=== PATIENT | male | born 1990 | race Caucasian/White ===

== ENCOUNTER → 2019-02-09 10:28 | Outpatient (CLI) | payer OTHER, SELFPAY ==
[2016-10-04 09:33] VITALS: BMI 18.9
[2019-02-09 12:45] LABS: Absolute Lymphocyte Count 0.67 X10^3/ul (0.83-4.51); Absolute Neutrophil Count 2.5 X10^3/uL (2.0-7.7); Eosinophil# 0.05 X10^3/uL; Eosinophils% 1.4 % (0-5); Hematocrit 44.6 % (40-54); Hemoglobin 15.6 g/dl (13.0-16.5); Lymphocyte # 0.67 X10^3/ul (4.0); Lymphocyte % 18.2 % (19-41); Mean Corpuscular Hgb 31.8 pg (27.0-32.0); Mean Corpuscular Volume 90.8 fL (80-94); Mean Platelet Vol. 10.8 fl (6.2-12.0); Monocyte# 0.48 X10^3/uL; Neutrophil # 2.49 X10^3/uL (2.7-7.7); Neutrophil % 67.4 % (47-70); Platelet Count 144 K/mm3 (150-450); RBC Distribution Width CV 12.2 % (11.6-14.6); RBC Distribution Width SD 40.1 fl (35.1-43.9); Red Blood Count 4.91 M/mm3 (4.6-6.2); White Blood Count 3.7 K/mm3 (4.4-11.0)
[2019-02-09 12:51] LABS: POSITIVE COUNT NO; POSITIVE DIFFERENTIAL NO; POSITIVE MORPHOLOGY NO
[2019-02-09 13:16] LABS: Anion Gap 6 (5-15); BUN 13 mg/dL (7-18); BUN/Creat Ratio 13.3 RATIO (10-20); Calcium,Total 9.1 mg/dL (8.5-10.1); Chloride 106 mmol/L (98-107); Creatinine, Serum 0.98 mg/dL (0.70-1.30); EST Glomerular Filtration Rate 96 mL/min (>60); Est Glom Filt Rate - Afr Amer 117 mL/min (>60); Glucose 86 mg/dL (74-106); Potassium 4.3 mmol/L (3.5-5.1); Sodium Level 141 mmol/L (136-145); Thyroid Stim Hormone (TSH) 0.86 uIU/mL (0.358-3.74)
== END ==
PROVIDERS: Family Provider Family Medicine; PCP Family Medicine; Referring Provider Family Medicine; Visit Provider Family Medicine
DX: R45.86 Emotional lability (principal)
CPT/HCPCS: 36415; 80048; 84443; 85025

== ENCOUNTER 2019-11-30 15:30 | Outpatient (RCR) | payer OTHER, SELFPAY ==
--- NOTE | 2019-10-29 17:06 | HP.PTEVAL_ITS ---
Patient's Visit Information JOLYNN CASH is a 28 year old M referred to Physical Therapy by ASHLEY PHAM with a diagnosis of LEFT KNEE PAIN. Date of Evaluation: 10/29/19 Physical Therapist: Damien Lujan, PT, Cert MDT, OCS - Visit Plan Frequency: 3x /Week Duration: 4 Weeks Plan: PT INTERVENTTIONS QUADS/HAMS/HIP STRENGTH ,FUNCTIONAL STRENGTHENING,MODALTIES NEEDED FOR PAIN. AVOID PAINFULL ATIVITIES - Subjective Findings: This 28 y/o male presnets to physical therapy with left knee pain. Patient injuried knee at work medical equipment 10/09/19 ,patient was squated down and herad a pop with immediate pain. Patient went to [facility] at [facility] ,did x-rays left knee-. Prescribed anti-inflammatory. Recommended PT. Patient has pain anterior knee sore. Aggraveting factors twisting,kneeling,pivoting,extended inactivity.Patient RTW full duty,but with brace. Alleviating rest. Patient knees parathesia/tingling . Patient has some discomfort with stairs mild squatting. Sleeping okay. 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 SOCIAL: ,baby - Pain Left Pain Intensity (Out of 10): 2 Pain Intensity Range: 10 - Objective POSTURE: mild foward. GAIT: reciprocal pattern. NEURO: intact. EDEMA: absent. AROM: 0-145 supine knee flexion. MMT: QUADS/HAMS/HIP FLEXION ,HIP ABD 4/5. FLEXABILITY: hams WFL ,quads WNL - Special Tests L Knee Alexis - Meniscus: Negative L Knee Ramón - ACL: Negative L Knee Anterior Drawer - ACL: Negative L Knee Pivot Shift - ACL, Ant. Rotator Instability: Negative L Knee Posterior Sag - PCL: Negative L Knee Valgus - MCL: Negative L Knee Varus - LCL: Negative L Knee Patellar Apprehension - PFS: Positive L Knee Patellar Grind - PFS: Negative - Goals Goal 1:: Independant with HEP Goal Time Frame: 4-6 Weeks Goal 2:: Decrease knee pain by 70% or > to improve function and job demands. Goal Time Frame: 4-6 Weeks Goal 3:: Patient to improve strength 5/5 fquads/hams/hip to improve function Goal Time Frame: 4-6 Weeks Goal 4:: Patient to improve LFES score by 10 points or> to improve QOL. Goal Time Frame: 4-6 Weeks Goal 5:: Pateint maryse able to perform job demands with problems Goal Time Frame: 4-6 Weeks - Rehabilitation Potential Physical Therapy Diagnosis: Patient has left knee pain for squatting at work had pain with symptosm affects ability to perform job demnads ,housework taks ,kneeling ,stairs thus benifit from skilled PT Rehabilitation Potential: Good - Anticipated Interventions Patient/Client Instruction: Educate patient on: Condition, Plan of Care For the Purpose of:: To decrease pain, To increase ROM, To improve muscle performance and motor function, To improve ability to perform ADL's, To increase tolerance to activity/condition/position, To improve ability of physical actions for home/community/work/leisure, To improve health of tissue, To increase flexibility/ROM, To reduce risk of recurrence, To improve ability to perform tasks related to life management Therapeutic Exercise to Include: Strength training, Power training, Endurance training, Balance training Comment: PRE'S QUADS/HAMS/HIP For the Purpose of:: To decrease pain, To increase ROM, To improve muscle performance and motor function, To improve ability to perform ADL's, To increase tolerance to activity/condition/position, To improve performance and independence with ADL's, To improve ability of physical actions for home/community/work/leisure, To improve balance, To improve ability to perform tasks related to life management TENS: Yes IF ES: Yes Cryotherapy (ice pack, ice massage): Yes Ultrasound (thermal/non thermal): Yes For the Purpose of:: To decrease pain, To increase ROM, To improve nutrient delivery to tissue, To increase oxygenation perfusion, To increase tolerance to activity/condition/position, To improve ability of physical actions for home/community/work/leisure Thank you for the opportunity to evaluate your patient. For Medicare and Medicare HMO plans, please review the plan of care and approve it. It will need to be FAXED BACK to us at [phone] for Medicare purposes. For Medicare only, by signing this I certify the plan of care. Please let me know if there are questions or concerns regarding this plan of care. Physician Signature:__ Date:
--- NOTE | 2019-11-30 16:02 | HP.PTEVAL ---
Patient's Visit Information JOLYNN CASH is a 28 year old M referred to Physical Therapy by ASHLEY PHAM with a diagnosis of LEFT KNEE PAIN. Date of Evaluation: 10/29/19 Physical Therapist: Damien Lujan, PT, Cert MDT, OCS - Visit Plan Frequency: 3x /Week Duration: 4 Weeks Plan: D/C TO HEP - Subjective Subjective: This 28 y/o male presnets to physical therapy with left knee pain. Patient injuried knee at work medical equipment 10/09/19 ,patient was squated down and herad a pop with immediate pain. Patient went to [employer] at [facility] ,did x-rays left knee-. Prescribed anti-inflammatory. Recommended PT. Patient has pain anterior knee sore. Aggraveting factors twisting,kneeling,pivoting,extended inactivity.Patient RTW full duty,but with brace. Alleviating rest. Patient knees parathesia/tingling . Patient has some discomfort with stairs mild squatting. Sleeping okay. 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 GAIT: reciprocal pattern. NEURO: intact. EDEMA: absent. AROM: 0-145 supine knee flexion. MMT: QUADS/HAMS/HIP FLEXION ,HIP ABD 4/5. FLEXABILITY: hams WFL ,quads WNL - Special Tests L Knee Alexis - Meniscus: Negative L Knee Ramón - ACL: Negative L Knee Anterior Drawer - ACL: Negative L Knee Pivot Shift - ACL, Ant. Rotator Instability: Negative L Knee Posterior Sag - PCL: Negative L Knee Valgus - MCL: Negative L Knee Varus - LCL: Negative L Knee Patellar Apprehension - PFS: Positive L Knee Patellar Grind - PFS: Negative - Goals Goal 1:: Independant with HEP Goal Time Frame: 4-6 Weeks Goal 2:: Decrease knee pain by 70% or > to improve function and job demands. Goal Time Frame: 4-6 Weeks Goal 3:: Patient to improve strength 5/5 fquads/hams/hip to improve function Goal Time Frame: 4-6 Weeks Goal 4:: Patient to improve LFES score by 10 points or> to improve QOL. Goal Time Frame: 4-6 Weeks Goal 5:: Pateint maryse able to perform job demands with problems Goal Time Frame: 4-6 Weeks - Rehabilitation Potential Physical Therapy Diagnosis: Patient has left knee pain for squatting at work had pain with symptosm affects ability to perform job demnads ,housework taks ,kneeling ,stairs thus benifit from skilled PT Rehabilitation Potential: Good - Anticipated Interventions Patient/Client Instruction: Educate patient on: Condition, Plan of Care For the Purpose of:: To decrease pain, To increase ROM, To improve muscle performance and motor function, To improve ability to perform ADL's, To increase tolerance to activity/condition/position, To improve ability of physical actions for home/community/work/leisure, To improve health of tissue, To increase flexibility/ROM, To reduce risk of recurrence, To improve ability to perform tasks related to life management Therapeutic Exercise to Include: Strength training, Power training, Endurance training, Balance training Comment: PRE'S QUADS/HAMS/HIP For the Purpose of:: To decrease pain, To increase ROM, To improve muscle performance and motor function, To improve ability to perform ADL's, To increase tolerance to activity/condition/position, To improve performance and independence with ADL's, To improve ability of physical actions for home/community/work/leisure, To improve balance, To improve ability to perform tasks related to life management TENS: Yes IF ES: Yes Cryotherapy (ice pack, ice massage): Yes Ultrasound (thermal/non thermal): Yes For the Purpose of:: To decrease pain, To increase ROM, To improve nutrient delivery to tissue, To increase oxygenation perfusion, To increase tolerance to activity/condition/position, To improve ability of physical actions for home/community/work/leisure Thank you for the opportunity to evaluate your patient. For Medicare and Medicare HMO plans, please review the plan of care and approve it. It will need to be FAXED BACK to us at [phone] for Medicare purposes. For Medicare only, by signing this I certify the plan of care. Please let me know if there are questions or concerns regarding this plan of care. Physician Signature: Date:
--- NOTE | 2019-12-05 16:49 | HP.PTDCSUM ---
It has been my pleasure to treat JOLYNN CASH referred by ASHLEY PHAM, with the diagnosis of LEFT KNEE PAIN for a total of 11 visit(s). Discharge Date: 11/30/19 Please see the following information for a summary of their discharge status. Subjective: Doing well .. RTW all activities Left Pain Intensity (Out of 10): 0 % Improvement: 90 Objective/Function: GAIT: reciprocal pattern. NEURO: intact. MMT: 5/5 QUADS/HAMS/HIP. AROM: 0-140 DEGREES SUPINE FLEXION Goal 1:: Independant with HEP Goal Progress: Goal Met Goal 2:: Decrease knee pain by 70% or > to improve function and job demands. Goal Progress: Goal Met Goal 3:: Patient to improve strength 5/5 fquads/hams/hip to improve function Goal Progress: Goal Met Goal 4:: Patient to improve LFES score by 10 points or> to improve QOL. Goal Progress: Goal Met Goal 5:: Pateint maryse able to perform job demands with problems Goal Progress: Goal Met Plan: D/C TO HEP Discharge Comments: HEP If there are questions or concerns regarding this patient's physical therapy, please feel free to call me at [phone]. Thank you for the referral of this patient. Sincerely, Damien Lujan, PT, Cert MDT, OCS
== END 2019-11-30 19:00 | disposition home or self-care (01) ==
LOC: PT 15:30
PROVIDERS: PCP Family Medicine
DX: S83.92XD Sprain of unspecified site of left knee, subsequent encounter (principal)
CPT/HCPCS: 97110; 97161

== ENCOUNTER 2020-04-21 23:07 | Emergency (ER) | payer OTHER, SELFPAY ==
[2019-11-10 10:49] VITALS: BMI 18.9
[2020-04-21 23:08] VITALS: BP 142/97; PULSE 93; RESP 16; TEMP 36.6; O2SAT 100; BMI 18.6
--- NOTE | 2020-04-21 23:11 | ED.DCSUM_ITS ---
History of Present Illness Chief Complaint: Shortness of Breath Informant: Patient Narrative: 29-year-old male presenting for sensation of shortness of breath which started today. He states he does not have a fever. He states he has coughed but is normal cough for him. He does not have chest pain. 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 He states he travels all over [facility] doing this. He states his captain wanted him to come in to be tested. Patient denies any medical problems. No changes in taste or smell. Past Medical History - Allergies and Home Meds Allergies/Adverse Reactions: Allergies No Known Allergies Allergy (Verified 04/21/20 23:10) Primary Care Physician: Kamran Sneed MD [Primary Care Provider] - Prior records reviewed: Yes Past Medical History: None Smoking Status: Never smoker Alcohol: None Drugs: None Review of Systems General: Denies: Chills, Fever Eyes: Denies: Blurred Vision - bilaterally, Diplopia ENT: Denies: Rhinorrhea, Sore throat Cardiovascular: Denies: Chest pain, Palpitations Respiratory: Reports: Dyspnea, Cough. Denies: Sputum, Dyspnea on exertion Gastrointestinal: Denies: Abdominal pain Genitourinary: Denies: Dysuria Musculoskeletal: Denies: Myalgias Skin: Denies: Rash Neurological: Denies: Headache, Weakness Allergy: Denies: Uticaria, Swelling of the mouth, Swelling of the tongue Physical Exam Vital Signs/Narrative: Vital Signs Temp Pulse Resp BP Pulse Ox 04/21/20 23:08 97.9 F 93 16 142/97 H 100 General: Well nourished, Well developed Head: Normocephalic, Atraumatic Eyes: Perrl, EOMI ENT: Moist mucous membranes. Negative for: No rhinorrhea Cardiovascular: Regular rate, Regular rhythm Respiratory: No distress, CTA bilaterally, Chest nontender. Negative for: Wheezing, Diminished Extremities: No edema Skin: Normal color, No rash Neurological: Alert, Oriented x3 Psychological: Normal affect Diagnostic/Tx/Re-eval - Medical Decision Making Patient presenting with subjective feeling of shortness of breath. He states he has no medical issues. His vital signs are stable and he is afebrile. He is not not hypoxic. He is not tachypneic. He states he works in healthcare and needs to be tested for COVID?19. His physical exam is normal. A normal heart and lung exam. I do not believe he needs a chest x-ray. I will give him team precautions and testing for COVID?19. Impression: 1 dyspnea 2 possible exposure to COVID?19 ED Disposition - Plan for ED Patient: Disposition: Home or Assisted Living Instructions: ED Dyspnea Referrals: Kamran Sneed MD [Primary Care Provider] -
[2020-04-21 23:48] VITALS: PULSE 80; RESP 16; O2SAT 98
--- NOTE | 2020-04-23 11:40 | ED.RN ---
PT CONTACTED REGISTRATION TO INFORM THAT THE VISIT SHOULD BE COVERED UNDER [facility]. THIS NURSE CONTACTED CHIEF MCCABE TO DETERMINE IF HE WANTED DRUG TESTING COMPLETED SINCE IT IS BEING CHANGED TO WORKERS [employer]. PER CHIEF MCCABE, DRUG TESTING IS NOT NEEDED
== END 2020-04-21 23:49 | disposition home or self-care (01) ==
LOC: ED 23:35
PROVIDERS: Emergency Provider Student in an Organized Health Care Education/Training Program; PCP Family Medicine
DX: R06.00 Dyspnea, unspecified (principal); Z20.828 Contact with and (suspected) exposure to other viral communicable diseases; R05 Cough
CPT/HCPCS: 87635; 94799; 99282; U0003

== ENCOUNTER → 2020-04-28 12:51 | Outpatient (CLI) | payer OTHER, SELFPAY ==
[2020-04-21 23:08] VITALS: BMI 18.6
--- NOTE | 2020-04-28 12:54 | RAD_ITS ---
STUDY: X-RAY CHEST REASON FOR EXAM: Male, 29 years old. DYSPNEA, FATIGUE TECHNIQUE: PA and lateral views of the chest. COMPARISON: None. FINDINGS: The lungs are clear and expanded. There is no demonstrated pleural abnormality. Normal size heart. Normal mediastinum and danyel. Normal visualized pulmonary arteries. Normal visualized aortic arch and descending thoracic aorta. Normal visualized thoracic spine. Normal visualized ribs, clavicles, and shoulders. There is no demonstrated abnormality of the visualized soft tissue structures of the upper abdomen. RAD/Chest PA and Lateral IMPRESSION: Normal x-ray examination of the chest. Electronically Signed: Yony Burrell, at 15:24 EDT , Service support ,
[2020-04-28 14:53] LABS: Absolute Lymphocyte Count 1.32 X10^3/uL (0.83-4.51); Absolute Neutrophil Count 2.5 X10^3/uL (2.0-7.7); Basophil# 0.02 X10^3/uL; Basophil% 0.5 % (0-1); Eosinophil# 0.04 X10^3/uL; Eosinophils% 0.9 % (0-5); Hematocrit 44.8 % (40-54); Hemoglobin 15.4 g/dL (13.0-16.5); Lymphocyte # 1.32 X10^3/ul (4.0); Lymphocyte % 31.1 % (19-41); Mean Corp Hgb Conc 34.4 g/dL (32-36); Mean Corpuscular Volume 92.9 fL (80-94); Mean Platelet Vol. 10.7 fl (6.2-12.0); Monocyte# 0.38 X10^3/uL; NRBC Flagged by Analyzer 0 % (0-5); Neutrophil # 2.47 X10^3/uL (2.7-7.7); Neutrophil % 58.3 % (47-70); Platelet Count 185 K/mm3 (150-450); RBC Distribution Width SD 41.4 fl (35.1-43.9); Red Blood Count 4.82 M/mm3 (4.6-6.2); White Blood Count 4.2 K/mm3 (4.4-11.0)
[2020-04-28 18:49] LABS: ALB/GLOB Ratio 1.5 RATIO (0.9-2.4); AST(SGOT) 22 U/L (15-37); Alanine Aminotransfer ALT/SGPT 39 U/L (16-61); Albumin, Serum 4.6 g/dL (3.2-5.0); Alkaline Phosphatase 57 U/L (45-117); Anion Gap 8 (5-15); BUN 18 mg/dL (7-18); BUN/Creat Ratio 18.4 RATIO (10-20); Calcium,Total 8.9 mg/dL (8.5-10.1); Chloride 101 mmol/L (98-107); Creatinine, Serum 0.98 mg/dL (0.70-1.30); EST Glomerular Filtration Rate 95 mL/min (>60); Est Glom Filt Rate - Afr Amer 116 mL/min (>60); Globulin 3.1 g/dL (2.2-4.2); Glucose 72 mg/dL (74-106); Magnesium 2.4 mg/dL (1.6-2.6); Protein, Total 7.7 g/dL (6.4-8.2); Sodium Level 138 mmol/L (136-145); Thyroid Stim Hormone (TSH) 1.49 uIU/mL (0.358-3.74)
== END ==
PROVIDERS: PCP Family Medicine; Referring Provider Family Medicine; Visit Provider Family Medicine
DX: R06.00 Dyspnea, unspecified (principal); R53.83 Other fatigue; R10.13 Epigastric pain
CPT/HCPCS: 36415; 71046; 80053; 83735; 84443; 85025

== ENCOUNTER 2020-05-05 12:57 | Emergency (ER) | payer OTHER, SELFPAY ==
[2020-05-05 12:58] VITALS: BP 129/88; PULSE 78; RESP 16; TEMP 36.9; O2SAT 99; BMI 18.8
--- NOTE | 2020-05-05 13:26 | US_ITS ---
STUDY: ABDOMINAL ULTRASOUND - RIGHT UPPER QUADRANT REASON FOR VISIT: Male, 29 years old RUQ PAIN STARTED TODAY -- nausea, vomiting, diarrhea 3days TECHNIQUE: Ultrasound evaluation of the right upper quadrant was performed with real-time and static ramos-scale imaging. TECHNICAL QUALITY: Adequate. COMPARISON: None. FINDINGS: Liver: The liver measures 17.9 cm. There is normal echogenicity of the liver. The bile ducts are within normal limits. There is hepatic color flow. The direction of portal flow is hepatopetal. There is no demonstrated mass lesion. Gallbladder: Normal distended gallbladder. The gallbladder wall measures 2.1 mm. There is a negative sonographic Scott''s sign. There is no pericholecystic fluid. There are no gallstones. Common Bile Duct (C.B.D.): The common bile duct measures 2.5 mm. Pancreas: Normal size of the head, body and tail of the pancreas. There is normal echogenicity of the pancreas. There is no demonstrated pancreatic mass or cyst. Right Kidney: Normal size of the right kidney. The right kidney measures 10.5 x 5.1 x 4.2 cm. Normal renal cortex. The right cortex measures 1.0 cm. There is no demonstrated renal mass or cyst. There is no right hydronephrosis. US/Gallbladder IMPRESSION: Normal right upper quadrant ultrasound examination. Electronically Signed: Jean-Paul Phillips MD at 15:05 EDT , Service support ,
[2020-05-05] MEDS: HYDROcodone Bitartrate/Apap 5/325 Tablet PO (14:32)
--- NOTE | 2020-05-05 14:56 | ED.DCSUM_ITS ---
- ER Visit Summary Date of Service: 05/05/20 Chief Complaint: Right flank pain History of Present Illness: The patient is a 29 M has medical history of reflux. Patient states he was seen in the last 1 to 2 weeks. At that time he had negative x-ray and labs. States that he is developed right flank pain at times it radiates to his right upper quadrant. Denies any fall injury or trauma. No fever or chills. No nausea, vomiting or diarrhea. No dysuria. Significant other sitting at bedside thinks it might be his gallbladder. Had unremarkable labs including liver enzymes within the last 1 to 2 weeks. Physical Examination: Young male no acute distress vital signs stable afebrile. H EENT exam unremarkable. Neck nontender no lymphadenopathy. Lungs clear to auscultation bilaterally. Heart regular rhythm no murmur. Abdomen soft. Nondistended normal bowel sounds no peritoneal signs. Specifically right upper right lower quadrant unremarkable. Ribs no crepitance no signs of trauma. No subcu air or crepitance. Patient moving all 4 extremities. Calves nontender without edema or cords. Back exam spine nontender right lower rib cage flank tenderness. But no ecchymosis bruising or subcu air. No signs of trauma. No redness or warmth. Neurologically patient is awake alert with no focal motor deficits. Test Results: I reviewed the patient's recent labs including CBC, chemistry and liver enzymes which were unremarkable. Also a chest x-ray which is unremarkable. These were done previously not today. Right upper quadrant gallbladder ultrasound read as normal by the radiologist. No stones. No cholecystitis. No fluid. Repeat exam patient is doing well at 3:16 PM. Emergency Department Course and Treatment: Patient and his significant other think this may be his gallbladder clinically and less concerned and he has no right upper quadrant abdominal pain. He requested I do a right upper quadrant ultrasound which is been performed were awaiting radiology interpretation. Per patient request after the ultrasound he wanted something for pain and was given 1 p.o. [place]. Treatment Plan: Hot shower, warm bath and massage. Motrin for pain and inflammation. Follow-up with your doctor if not improving. Return if feeling worse. Disposition: Discharge Impression: Right flank pain secondary to musculoskeletal etiology This note was generated with [employer] software. It may contain incorrect words, spelling, and punctuation that were not noted in review of the chart prior to signing ED Disposition - Plan for ED Patient: Referrals: Kamran Sneed MD [Primary Care Provider] -
--- NOTE | 2020-05-05 15:17 | ED.DEP ---
ED Disposition - Plan for ED Patient: Disposition: Home or Assisted Living Instructions: ED Spasm Back No Trauma Referrals: Kamran Sneed MD [Primary Care Provider] - 1 Week if not improving Additional Instructions: Showers, warm bath and massage to your right flank pain is musculoskeletal in etiology. The ultrasound of your gallbladder was read as normal. Motrin for pain inflammation and Tylenol for pain. This should progressively improve. Follow-up your primary care physician if not improving.
[2020-05-05 15:28] VITALS: BP 112/70; PULSE 74; RESP 17; O2SAT 98
== END 2020-05-05 15:28 | disposition home or self-care (01) ==
PROVIDERS: Emergency Provider Emergency Medicine; PCP Family Medicine
DX: R10.9 Unspecified abdominal pain (principal); K21.9 Gastro-esophageal reflux disease without esophagitis
CPT/HCPCS: 76705; 99283

== ENCOUNTER → 2020-05-22 15:21 | Outpatient (CLI) | payer OTHER, SELFPAY ==
[2020-05-05 12:58] VITALS: BMI 18.8
[2020-05-27 11:14] LABS: H. PYLORI STOOL AG Negative (Negative)
== END ==
LOC: MFPLAB 15:23 → LABSPEC 15:24
PROVIDERS: PCP Family Medicine; Referring Provider Family Medicine; Visit Provider Family Medicine
DX: R10.13 Epigastric pain (principal)
CPT/HCPCS: 87177; 87209

== ENCOUNTER → 2022-11-09 | Outpatient (CLI) | payer OTHER, SELFPAY ==
--- NOTE | 2022-11-09 16:29 | CT_ITS ---
STUDY: CT ABDOMEN AND PELVIS WITH CONTRAST REASON FOR EXAM: Male, 31 years old. left upper, lower quad pain; mid abdominal pain RADIATION DOSAGE (If Supplied By Facility): CTDIvol = ( 8.19 ) mGy, DLP = ( 335.75 ) mGycm TECHNIQUE: Transaxial images were obtained from the dome of the diaphragm to the symphysis pubis without oral contrast. Oral and IV Gastrografin and 100mL Isovue-300 was administered. Sagittal and coronal images were reconstructed. Individualized dose optimization techniques were used for this CT. COMPARISON: None. FINDINGS: The visualized lung bases are unremarkable. The visualized portions of the heart are within normal limits. Normal liver. Normal gallbladder and extrahepatic biliary system. Normal spleen. Pancreas is normal size and homogeneous attenuation however there is effacement of the gastropancreatic fat planes and mild acute pancreatitis is not entirely excluded.. Normal bilateral adrenal glands. Normal right kidney. Normal left kidney. Mild nonspecific gastric distention.. Mildly distended proximal to mid small bowel but no definitive evidence for small bowel obstruction more consistent with focal ileus.. . The appendix is visualized and appears normal. Normal abdominal aorta. Normal inferior vena cava. Normal retroperitoneum. Normal urinary bladder. Normal abdominal wall. Normal osseous structures. CT/Abdomen/Pelvis WITH Contrast IMPRESSION: Findings which may be consistent with nonspecific gastroenteritis possibly associated with mild pancreatitis however clinical correlation is recommended. No evidence for small bowel obstruction or other acute abnormality. Electronically Signed: Teofilo Contreras MD at 18:51 EST ,
== END | disposition home or self-care (01) ==
LOC: CT 16:26
PROVIDERS: PCP Family Medicine; Visit Provider Nurse Practitioner Family
DX: R10.84 Generalized abdominal pain (principal)
CPT/HCPCS: 74177; Q9967

== ENCOUNTER → 2022-11-09 | Outpatient (CLI) | payer OTHER, SELFPAY ==
[2022-11-09 17:31] LABS: Hematocrit 45.6 % (40-54); Hemoglobin 15.6 g/dL (13.0-16.5); Mean Corp Hgb Conc 34.2 g/dL (32-36); Mean Corpuscular Hgb 31.8 pg (27.0-32.0); Mean Corpuscular Volume 92.9 fL (80-94); Mean Platelet Vol. 10.1 fl (6.2-12.0); Platelet Count 251 K/mm3 (150-450); RBC Distribution Width CV 12.3 % (11.6-14.6); RBC Distribution Width SD 42.3 fl (35.1-43.9); Red Blood Count 4.91 M/mm3 (4.6-6.2); White Blood Count 4.3 K/mm3 (4.4-11.0)
[2022-11-09 18:07] LABS: ALB/GLOB Ratio 1.3 RATIO (0.9-2.4); AST(SGOT) 26 U/L (15-37); Alanine Aminotransfer ALT/SGPT 50 U/L (16-61); Albumin, Serum 4.2 g/dL (3.2-5.0); Alkaline Phosphatase 59 U/L (45-117); Anion Gap 7 (5-15); BUN 16 mg/dL (7-18); BUN/Creat Ratio 15.8 RATIO (10-20); Calcium,Total 9.2 mg/dL (8.5-10.1); Chloride 106 mmol/L (98-107); Creatinine, Serum 1.01 mg/dL (0.70-1.30); EST Glomerular Filtration Rate 91 mL/min (>60); Est Glom Filt Rate - Afr Amer 110 mL/min (>60); Globulin 3.3 g/dL (2.2-4.2); Glucose 101 mg/dL (74-106); Potassium 4.2 mmol/L (3.5-5.1); Protein, Total 7.5 g/dL (6.4-8.2); Sodium Level 142 mmol/L (136-145)
[2022-11-10 12:26] LABS: Amylase 35 U/L (25-115); Lipase 137 U/L (73-393)
== END | disposition home or self-care (01) ==
PROVIDERS: PCP Family Medicine; Referring Provider Family Medicine; Visit Provider Nurse Practitioner Family
DX: K21.9 Gastro-esophageal reflux disease without esophagitis (principal)
CPT/HCPCS: 36415; 80053; 82150; 83690; 85027

== ENCOUNTER 2023-05-13 07:58 | Outpatient (CLI) | payer OTHER, SELFPAY ==
[2023-05-13 08:50] LABS: Erythrocyte Sedimentation Rate < 1 mm/hr (0-20)
[2023-05-13 08:52] LABS: Absolute Lymphocyte Count 1.16 X10^3/uL (0.83-4.51); Absolute Neutrophil Count 1.7 X10^3/uL (2.0-7.7); Basophil# 0.02 X10^3/uL; Basophil% 0.6 % (0-1); Eosinophil# 0.05 X10^3/uL; Eosinophils% 1.5 % (0-5); Hematocrit 45.6 % (40-54); Hemoglobin 15.7 g/dL (13.0-16.5); Lymphocyte # 1.16 X10^3/ul (0.83-4.51); Lymphocyte % 35.9 % (19-41); Mean Corp Hgb Conc 34.4 g/dL (32-36); Mean Corpuscular Volume 92.9 fL (80-94); Mean Platelet Vol. 10.3 fl (6.2-12.0); Monocyte# 0.28 X10^3/uL; Monocyte% 8.7 % (0-10); NRBC Flagged by Analyzer 0 % (0-5); Neutrophil # 1.71 X10^3/uL (2.7-7.7); Platelet Count 170 K/mm3 (150-450); RBC Distribution Width CV 11.9 % (11.6-14.6); RBC Distribution Width SD 40.8 fl (35.1-43.9); Red Blood Count 4.91 M/mm3 (4.6-6.2); White Blood Count 3.2 K/mm3 (4.4-11.0)
[2023-05-13 09:13] LABS: ALB/GLOB Ratio 1.4 RATIO (0.9-2.4); AST(SGOT) 18 U/L (15-37); Alanine Aminotransfer ALT/SGPT 33 U/L (16-61); Albumin, Serum 4.2 g/dL (3.2-5.0); Alkaline Phosphatase 58 U/L (45-117); Amylase 32 U/L (25-115); Anion Gap 3 (5-15); BUN 14 mg/dL (7-18); BUN/Creat Ratio 13.1 RATIO (10-20); CRP < 2.90 mg/L (0.0-3.0); Calcium,Total 9.1 mg/dL (8.5-10.1); Chloride 105 mmol/L (98-107); Creatinine, Serum 1.07 mg/dL (0.70-1.30); EST Glomerular Filtration Rate 84 mL/min (>60); Est Glom Filt Rate - Afr Amer 102 mL/min (>60); Globulin 3.1 g/dL (2.2-4.2); Glucose 88 mg/dL (74-106); LDH 123 U/L (87-241); Lipase 27 U/L (13-75); Potassium 4.1 mmol/L (3.5-5.1); Protein, Total 7.3 g/dL (6.4-8.2); Sodium Level 138 mmol/L (136-145)
[2023-05-16 14:08] LABS: Anti-Centromere B Ab <0.2 AI (0.0-0.9); Anti-Chromatin <0.2 AI (0.0-0.9); Anti-Jo <0.2 AI (0.0-0.9); Anti-Scleroderma-70 AB 0.2 AI (0.0-0.9); Anti-dsDNA Ab <1 IU/mL (0-9); Beef <0.10 kU/L (Class 0); Chocolate <0.10 kU/L (Class 0); Clam <0.10 kU/L (Class 0); Codfish <0.10 kU/L (Class 0); Corn <0.10 kU/L (Class 0); Egg, White <0.10 kU/L (Class 0); Egg, Whole <0.10 kU/L (Class 0); Milk (Cow) <0.10 kU/L (Class 0); Peanut <0.10 kU/L (Class 0); Pork <0.10 kU/L (Class 0); RNP Ab <0.2 AI (0.0-0.9); SCALLOP <0.10 kU/L (Class 0); SESAME SEED <0.10 kU/L (Class 0); SJOGREN'S Anti-SS-A test < 0.2 AI (0.0-0.9); SJOGREN'S Anti-SS-B test < 0.2 AI (0.0-0.9); Shrimp <0.10 kU/L (Class 0); Smith Ab <0.2 AI (0.0-0.9); Soybean <0.10 kU/L (Class 0); Walnut, (Food) <0.10 kU/L (Class 0); Wheat <0.10 kU/L (Class 0)
[2023-05-17 03:07] LABS: Alpha-1-Globulins 0.2 g/dL (0.0-0.4); Alpha-2-Globulins 0.6 g/dL (0.4-1.0); Cytoplasmic Ab (C-ANCA) <1:20 titer (Neg:<1:20); Endomysial Antibody IgA Negative (Negative); Gamma Globulin 1.1 g/dL (0.4-1.8); IgG, Quant 904 mg/dL (603-1613); Immunoglobulin A 229 mg/dL (90-386); Immunoglobulin E 9 IU/mL (6-495); Immunoglobulin G, Subclass 1 592 mg/dL (248-810); Immunoglobulin G, Subclass 2 205 mg/dL (130-555); Immunoglobulin G, Subclass 3 34 mg/dL (15-102); Immunoglobulin G, Subclass 4 18 mg/dL (2-96); Immunoglobulin M 199 mg/dL (20-172); PROEL- TOTAL PROTEIN 6.9 g/dL (6.0-8.5); Perinuclear Ab (P-ANCA) <1:20 titer (Neg:<1:20); t-Transglutaminase IgA <2 U/mL (0-3)
[2023-05-18 19:07] LABS: Calprotectin, Stool 86 ug/g (0-120)
[2023-05-19 00:07] LABS: Pancreatic Elastase, Fecal 225 (>200)
[2023-05-26 05:07] LABS: H. PYLORI STOOL AG Negative (Negative)
== END 2023-05-13 23:59 | disposition home or self-care (01) ==
PROVIDERS: PCP Family Medicine; Referring Provider Internal Medicine Gastroenterology; Visit Provider Internal Medicine Gastroenterology
DX: K58.9 Irritable bowel syndrome, unspecified (principal); R10.9 Unspecified abdominal pain; K85.90 Acute pancreatitis without necrosis or infection, unspecified
CPT/HCPCS: 36415; 80053; 82150; 82653; 82784; 82785; 82787; 83516; 83615; 83630; 83690; 83993; 84165; 85025; 85652; 86003; 86005; 86140; 86225; 86235; 86255; 86256; 86334; 87177; 87209; 87329; 87338; 87493; 87506

== ENCOUNTER → 2023-05-31 | Outpatient (CLI) | payer OTHER, SELFPAY ==
--- NOTE | 2023-05-31 07:41 | NM_ITS ---
CLINICAL: 32-year-old male with history of abdominal pain. RADIONUCLIDE HEPATOBILIARY SCINTIGRAPHY COMPARISON: None available FINDINGS: Following the intravenous administration of 5.3 mCi of 99m Tc Mebrofenin, hepatobiliary images reveal: 1. Relatively prompt and homogeneous radiopharmaceutical concentration is noted by a normal sized liver. No parenchymal defects are identified. 2. Gallbladder activity is identified at 3-4 minutes post radiopharmaceutical administration. 3. Small intestinal tract is not visualized during 60 minutes of sequential imaging acquisition. Small bowel is observed at 75 minutes following tracer injection. 4. Washout of the radiopharmaceutical by the hepatic parenchyma appears qualitatively normal. NM/Hepatobilliary Imaging IMPRESSION: 1. ABNORMAL 99m Tc Mebrofenin hepatobiliary imaging examination. A. Visualization of the gallbladder within 60 minutes post radiopharmaceutical administration excludes acute cholecystitis with 97% certitude. (Grace jefferson al, Nucl Med Kenna Cathy Press pg. 35, 1981). B. Delayed small bowel demonstration (> 60 minutes) may represent partial common bile duct obstruction in the appropriate clinical setting. (Juvenal, Semin Nucl Med 12: 53, 1982). Electronically Signed: Gianni Crocker DO at 21:52 EDT ,
== END | disposition home or self-care (01) ==
LOC: NM 07:41
PROVIDERS: PCP Family Medicine; Referring Provider Internal Medicine Gastroenterology; Visit Provider Internal Medicine Gastroenterology
DX: R10.9 Unspecified abdominal pain (principal); K85.90 Acute pancreatitis without necrosis or infection, unspecified
CPT/HCPCS: 78226; A9537

== ENCOUNTER → 2023-06-07 | Outpatient (CLI) | payer OTHER, SELFPAY ==
--- NOTE | 2023-06-07 07:45 | NM_ITS ---
CLINICAL: 32-year-old male with history of abdominal pain and nausea. SEMI-SOLID PHASE 99m Tc SULFUR COLLOID GASTRIC EMPTYING STUDY COMPARISON: None available FINDINGS: The patient was administered 1.1 mCi of 99m Tc sulfur colloid mixed with oatmeal and consumed per os. Image acquisitions in the anterior-posterior projection were obtained for 60 minutes. There is prompt visualization of the stomach. There is no gastroesophageal reflux identified. First order kinetics are maintained throughout the duration of the acquisitions. The T ? linear fit was extrapolated to be 81.07 minutes, (Normal: 12-56 minutes). NM/Gastric Emptying Study IMPRESSION: 1. ABNORMAL 99m Tc sulfur colloid semi-solid phase (oatmeal) gastric emptying imaging examination. A. There is delayed semi-solid phase gastric emptying compared to normal controls with maintained first order kinetics throughout all components of the examination. (Margie et al, J Nucl Med Tech 38: 186, 2010). Electronically Signed: Gianni Crocker DO at 22:30 EDT ,
== END | disposition home or self-care (01) ==
PROVIDERS: PCP Family Medicine; Referring Provider Internal Medicine Gastroenterology; Visit Provider Internal Medicine Gastroenterology
DX: R10.9 Unspecified abdominal pain (principal); K85.90 Acute pancreatitis without necrosis or infection, unspecified
CPT/HCPCS: 78264; A9541

== ENCOUNTER → 2023-06-16 | Outpatient (CLI) | payer OTHER, SELFPAY ==
--- NOTE | 2023-06-16 15:42 | MRI_ITS ---
INDICATION: acute pancreatitis, ABD PAIN EXAMINATION: MRI - MR MRCP and Abdomen W/O Contrast TECHNIQUE: Multiplanar and multisequence MR images of the abdomen were obtained with MRCP sequence. Three-dimensional post-processing reconstructions were performed. IV Contrast Dosage and Agent: None. COMPARISON: FINDINGS: LIVER: No mass. Normal morphology. GALLBLADDER AND BILIARY TREE: No gallstones. No gallbladder distension or wall edema. The CBD measures . No intra- or extrahepatic biliary dilation. No choledochal filling defect. PANCREAS: No mass. No pancreatic duct dilation. SPLEEN: Borderline splenic size. ADRENAL GLANDS: No nodules. KIDNEYS: Normal renal size and position. No hydronephrosis. No mass. LYMPH NODES: No enlarged periportal or retroperitoneal lymph nodes. PERITONEUM: No ascites or fluid collection. Moderately distended stomach with retained gastric contents . MRI/MRCP Abdomen without Contrast IMPRESSION: Unremarkable MRCP. No biliary dilation or choledocolithiasis. Moderately distended stomach. Electronically Signed: Julien Alston DO at 19:58 EDT ,
== END | disposition home or self-care (01) ==
LOC: MRI 15:32
PROVIDERS: PCP Family Medicine; Referring Provider Internal Medicine Gastroenterology; Visit Provider Internal Medicine Gastroenterology
DX: R10.13 Epigastric pain (principal); K85.00 Idiopathic acute pancreatitis without necrosis or infection
CPT/HCPCS: 74181

== ENCOUNTER → 2024-06-05 | Outpatient (CLI) | payer OTHER, SELFPAY ==
--- NOTE | 2024-06-05 07:55 | RAD_ITS ---
EXAMINATION: Air contrast UPPER GI SERIES INDICATION: Male, 33 years generalized abdominal pain with nausea and diarrhea. FLUOROSCOPY TIME (if supplied): (1:00) minutes/seconds. 36 fluoroscopic images were obtained. TECHNIQUE: Radiographic and fluoroscopic images of the distal esophagus, stomach, and proximal small intestine were obtained following the oral ingestion of barium. COMPARISON: None. FINDINGS: There is no evidence for organomegaly, abnormal calcifications, or abnormal bowel gas pattern. The psoas margins and flank stripes are normal. The visualized osseous structures are normal. The mucosa of the esophagus, stomach and duodenum is normal in appearance without evidence for stricture, ulceration, mass or diverticulum. There is no evidence for hiatal hernia or gastroesophageal reflux. RAD/Upper GI Dual Contrast IMPRESSION: 1. Normal air-contrast upper gastrointestinal study. Electronically Signed: Yony Burrell MD at 8:46 EDT ,
== END | disposition home or self-care (01) ==
LOC: RAD 07:45
PROVIDERS: PCP Family Medicine; Referring Provider Internal Medicine Gastroenterology; Visit Provider Internal Medicine Gastroenterology
DX: K31.84 Gastroparesis (principal)
CPT/HCPCS: 74246

== ENCOUNTER → 2024-06-14 | Outpatient (CLI) | payer OTHER, SELFPAY ==
--- NOTE | 2024-06-14 12:23 | NM_ITS ---
CLINICAL: 33-year-old male with history of clinical gastroparesis. SEMI-SOLID PHASE 99m Tc SULFUR COLLOID GASTRIC EMPTYING STUDY COMPARISON: Previous semisolid phase gastric emptying examination report dated 06/07/2023 FINDINGS: The patient was administered 1.1 mCi of 99m Tc sulfur colloid mixed with oatmeal and consumed per os. Image acquisitions in the anterior-posterior projections were obtained for 60 minutes. There is prompt visualization of the stomach. There is no gastroesophageal reflux identified. The T ? linear fit was extrapolated to be 212.37 minutes, (Normal: 12-56 minutes) compared to 81.07 minutes defined on the prior examination dated 06/07/2023. NM/Gastric Emptying Study IMPRESSION: 1. ABNORMAL 99m Tc sulfur colloid semi-solid phase (oatmeal) gastric emptying imaging examination. A. There is markedly delayed semi-solid phase gastric emptying compared to normal controls. (Margie et al, J Nucl Med Tech 38: 186, 2010). B. Overall compared to the examination dated 06/07/2023, there is interim deterioration in semisolid phase gastric emptying as defined above. Electronically Signed: Gianni Crocker DO at 10:12 EDT ,
== END | disposition home or self-care (01) ==
LOC: NM 12:23
PROVIDERS: PCP Family Medicine; Visit Provider Internal Medicine Gastroenterology
DX: K31.84 Gastroparesis (principal)
CPT/HCPCS: 78264; A9541

== ENCOUNTER → 2024-08-03 | Outpatient (CLI) | payer OTHER, SELFPAY ==
--- NOTE | 2024-08-03 07:41 | NM_ITS ---
CLINICAL: 33-year-old male with history of clinical gastroparesis. SOLID PHASE 99m Tc SULFUR COLLOID GASTRIC EMPTYING STUDY COMPARISON: Semisolid phase gastric emptying study report 06/14/2024 FINDINGS: The patient was administered 1.2 mCi of 99m Tc sulfur colloid mixed with egg and consumed per os. Image acquisitions in the anterior-posterior projections were obtained for 236 minutes. There is prompt visualization of the stomach. There is no gastroesophageal reflux identified. First order kinetics are maintained throughout the duration of the acquisitions. The T ? raw data emptying was calculated to be 72.72 minutes, (Normal 65-110 minutes) compared to 212.37 minutes on the most recent semisolid phase gastric emptying evaluation. NM/Gastric Emptying Study - 4 HR IMPRESSION: 1. NORMAL 99m Tc sulfur colloid solid phase gastric emptying imaging examination. A. There is normal and preserved solid phase gastric emptying compared to normal controls with maintained first order kinetics throughout all components of the examination. (Christopher et al, Gastroenterology 77: 75, 1979 Bernabe et al, Semin Nucl Med 12: 116, 1981 Bebeto et al, [facility] Procedure Guidelines Adult Solid Meal Gastric Emptying Study 3.0 [email or web address]). B. Overall compared to the previous semisolid phase gastric emptying examination dated 06/14/2024, there is current normal solid phase emptying as defined above. Electronically Signed: Gianni Crocker DO at 10:52 EST ,
== END | disposition home or self-care (01) ==
PROVIDERS: PCP Family Medicine; Referring Provider Student in an Organized Health Care Education/Training Program; Visit Provider Student in an Organized Health Care Education/Training Program
DX: K31.84 Gastroparesis (principal)
CPT/HCPCS: 78264; A9541